=== PATIENT | female | born 1965 | race Caucasian/White ===

== ENCOUNTER → 2016-12-13 | Outpatient (CLI) | payer OTHER | LOC: BMCIMAGING 14:43 | PROVIDERS: ATTEND Internal Medicine | DX: R09.02 Hypoxemia (principal); I10 Essential (primary) hypertension; J45.909 Unspecified asthma, uncomplicated; R91.8 Other nonspecific abnormal finding of lung field ==

== ENCOUNTER → 2016-12-19 | Outpatient (CLI) | payer OTHER | LOC: CIMAGING 08:14 | PROVIDERS: ATTEND Internal Medicine | DX: R18.8 Other ascites (principal); R16.0 Hepatomegaly, not elsewhere classified; K76.0 Fatty (change of) liver, not elsewhere classified | CPT/HCPCS: 76700-PO ==

== ENCOUNTER → 2016-12-21 | Outpatient (CLI) | payer OTHER | LOC: FIMAGING 08:57 | PROVIDERS: ATTEND Internal Medicine Gastroenterology | DX: R14.0 Abdominal distension (gaseous) (principal); M24.9 Joint derangement, unspecified ==

== ENCOUNTER 2016-12-24 15:16 | Inpatient (IN) | payer OTHER ==
--- NOTE | 2016-12-24 16:02 | EDPHY ---
HPI/HX/ROS/PE/MDM Narrative: CHIEF COMPLAINT: Swollen abdomen and legs. HISTORY OF PRESENT ILLNESS: This patient is a 51 year old female arriving with her complaining of swollen abdomen and feet worsening over the last 2-3 months. She sought evaluation several weeks ago and was diagnosed with "viral hepatitis" one week ago. She states she has started taking Spironolactone, but that her abdomen has continued to swell. She states she had been a heavy drinker in the past, but has since decreased her alcohol use. She states she has pain on the left side of her abdomen which is exacerbated by moving or by lying down on that side. She endorses intermittent chest pain and shortness of breath, and does have a history of asthma. She states she has noted blood in her stool, but that it may be related to a "cyst". She reports she takes Ibuprofen for pain, and has been avoiding Tylenol, alcohol, and salty foods as directed. No fever, chills, palpitations, vomiting, diarrhea, urinary complaints, headache, lightheadedness. REVIEW OF SYSTEMS: Aside from elements discussed in the HPI, a comprehensive 10-point review of systems was reviewed and is negative. PAST MEDICAL HISTORY: Asthma (Advair, Albuterol, nebulizer). SOCIAL HISTORY: at bedside. PCP Dr. Antony. Seen by Dr Rob Gallegos for GI. VITAL SIGNS: Reviewed by me GENERAL: Jaundiced. Reports abdominal pain, no respiratory distress. HEENT: Atraumatic. Eyes: Icterus. No injection. Mouth: moist mucous membranes. No erythema or lesions. Neck: supple with no adenopathy. LUNGS: Clear to auscultation bilaterally, no wheezes, rhonchi or rales. CARDIAC: Regular rate and rhythm, no rubs, murmurs or gallops. ABDOMEN: Distended, positive fluid wave. Mild diffuse tenderness. BACK: No CVA tenderness. EXTREMITIES: 2+ pitting edema to knees. No trauma. Range of motion is normal throughout. NEURO: Alert and oriented, grossly nonfocal. SKIN: Warm and dry, jaundiced, no rash. Scattered spider hemangiomas. PSYCHIATRIC: Normal mentation, no agitation. Portions of this note were transcribed by a center medical specialist. I personally performed a history, physical exam, medical decision making, and confirmed accuracy of information the transcribed note. ED Course: This patient is a 51 year old female with recent hepatitis diagnosis presenting with distended abdomen and 2+ pitting edema. Recent lab results are negative for Hepatitis A, B, and C. Plan for labs including CBC, liver, lipase, PTPTT, and UA and abdominal CT. 17:[address] Rider, radiologist. CT reveals small amount of ascites, edema of abdominal wall, fatty infiltrate to liver. Plan to admit for liver cirrhosis, hyperbilirubinemia. 17:52 Dr. Tillman, hospitalist, accepts admission. Aware that patient had been seen by Dr Gallegos. Arrangements made for ultrasound guided diagnostic paracentesis. MDM: Diff dx considered included but not limited to ascites, spontaneous bacterial peritonitis, liver failure, electrolyte abnormalities, anemia, coagulopathy. - Data Points Imaging Results: Imaging Impressions Abdomen/Pelvis CT 12/24/16 16:14 Impression: 1. Nonobstructive bilateral nephrolithiasis. 2. Sigmoid diverticulosis without diverticulitis or bowel obstruction. 3. Small amount of ascites in all four quadrants. 4. Hepatomegaly and hepatic steatosis without focal solid hepatic masses. 5. No splenomegaly. 6. No appendicitis, constipation, or bowel obstruction. Findings and recommendations discussed with emergency department physician, Filomena Orantes MD at 1732 hours on December 24, 2016. Final report concurs with initial preliminary interpretation. Chest X-Ray 12/24/16 16:14 Impression: 1. Lingular scarring or atelectasis. 2. No acute pneumonia, pleural effusion, pneumothorax, or pulmonary edema. Laboratory Results: Laboratory Results 12/24/16 15:37 12/24/16 15:37 12/24/16 12/24/16 12/24/16 15:37 15:37 15:37 WBC 8.89 10^3/uL 10^3/uL (3.80-9.50) RBC 3.76 10^6/uL L 10^6/uL (4.18-5.33) Hgb 12.8 g/dL g/dL (12.6-16.3) Hct 37.6 % L % (38.0-47.0) MCV 100.0 fL H fL (81.5-99.8) MCH 34.0 pg pg (27.9-34.1) MCHC 34.0 g/dL g/dL (32.4-36.7) RDW 22.8 % H % (11.5-15.2) Plt Count 249 10^3/uL 10^3/uL (150-400) MPV 10.6 fL fL (8.7-11.7) Neut % (Auto) 75.9 % H % (39.3-74.2) Lymph % (Auto) 10.5 % L % (15.0-45.0) Snyder % (Auto) 10.5 % % (4.5-13.0) Eos % (Auto) 1.2 % % (0.6-7.6) Baso % (Auto) 1.7 % % (0.3-1.7) Nucleat RBC Rel Count 0.0 % % (0.0-0.2) Absolute Neuts (auto) 6.75 10^3/uL H 10^3/uL (1.70-6.50) Absolute Lymphs (auto) 0.93 10^3/uL L 10^3/uL (1.00-3.00) Absolute Monos (auto) 0.93 10^3/uL H 10^3/uL (0.30-0.80) Absolute Eos (auto) 0.11 10^3/uL 10^3/uL (0.03-0.40) Absolute Basos (auto) 0.15 10^3/uL H 10^3/uL (0.02-0.10) Absolute Nucleated RBC 0.00 10^3/uL 10^3/uL (0-0.01) Immature Gran % 0.2 % % (0.0-1.1) Immature Gran # 0.02 10^3/uL 10^3/uL (0.00-0.10) Platelet Estimate ADEQUATE (ADEQ) Polychromasia 1+ H Target Cells 1+ H Oval Macrocytes 1+ H PT 17.5 SEC H SEC (12.0-15.0) INR 1.44 H (0.83-1.16) APTT 34.5 SEC SEC (23.0-38.0) Sodium 138 mEq/L mEq/L (134-144) Potassium 3.9 mEq/L mEq/L (3.5-5.2) Chloride 100 mEq/L mEq/L (97-110) Carbon Dioxide 26 mEq/l mEq/l (22-31) Anion Gap 12 mEq/L mEq/L (8-16) BUN 3 mg/dL L mg/dL (7-23) Creatinine 0.7 mg/dL mg/dL (0.6-1.0) Estimated GFR > 60 Glucose 102 mg/dL H mg/dL (70-100) Calcium 8.9 mg/dL mg/dL (8.5-10.4) Total Bilirubin 13.0 mg/dL H mg/dL (0.1-1.4) Conjugated Bilirubin 10.2 mg/dL H mg/dL (0.0-0.5) Unconjugated Bilirubin 2.8 mg/dL H mg/dL (0.0-1.1) AST 167 IU/L H IU/L (14-46) ALT 47 IU/L IU/L (9-52) Alkaline Phosphatase 202 IU/L H IU/L (38-126) Total Protein 7.4 g/dL g/dL (6.3-8.2) Albumin 3.1 g/dL L g/dL (3.5-5.0) Lipase 120.0 IU/L IU/L (23-300) Medications Given: Discontinued Medications Furosemide (Lasix) 40 mg PO ONCE ONE Stop: 12/24/16 19:11 Last Admin: 12/24/16 19:37 Dose: 40 mg General Time Seen by Provider: 12/24/16 15:43 Initial Vital Signs: Initial Vital Signs Temperature (C) 36.6 C 12/24/16 15:23 Heart Rate 105 H 12/24/16 15:23 Respiratory Rate 20 12/24/16 15:23 Blood Pressure 132/85 H 12/24/16 15:23 O2 Sat (%) 95 12/24/16 15:23 O2 Delivery Mode Room Air Allergies/Adverse Reactions: No Known Allergies Allergy (Unverified 12/24/16 15:23) Home Medications: Medication Instructions Recorded Albuterol [Proventil Neb] 3 ml IH Q6H PRN 12/24/16 Albuterol [Ventolin Hfa Inhaler] 1 - 2 puffs IH Q4-6PRN PRN 12/24/16 Fluticasone/Salmeter 250/50Mcg 1 puffs IH BID 12/24/16 [Advair 250/50 (*)] Ibuprofen [Motrin (*)] 800 mg PO BID PRN 12/24/16 Spironolactone [Aldactone] 50 mg PO BID 12/24/16 Temazepam [Restoril] 30 mg PO HS PRN 12/24/16 Departure - Departure Disposition: [facility] Inpatient Acute Clinical Impression: Hyperbilirubinemia Liver cirrhosis Qualifiers: Hepatic cirrhosis type: unspecified hepatic cirrhosis Ascites presence: with ascites Qualified Code(s): K74.60 - Unspecified cirrhosis of liver Condition: Fair Report Scribed for: Filomena Orantes Report Scribed by: Caron Lerma Date of Report: 12/24/16 Time of Report: 16:00
[2016-12-24 16:28] LABS: ALANINE AMINOTRANSFERASE 47 IU/L (9-52); ALBUMIN 3.1 g/dL (3.5-5.0); ALKALINE PHOSPHATASE 202 IU/L (38-126); ANION GAP 12 mEq/L (8-16); ASPARTATE AMINOTRANSFERASE 167 IU/L (14-46); BILIRUBIN-CONJUGATED 10.2 mg/dL (0.0-0.5); BILIRUBIN-UNCONJUGATED 2.8 mg/dL (0.0-1.1); CALCIUM 8.9 mg/dL (8.5-10.4); CARBON DIOXIDE 26 mEq/l (22-31); CHLORIDE 100 mEq/L (97-110); CREATININE 0.7 mg/dL (0.6-1.0); GLOMERULAR FILTRATION RATE > 60; GLUCOSE 102 mg/dL (70-100); POTASSIUM 3.9 mEq/L (3.5-5.2); SODIUM 138 mEq/L (134-144); TOTAL PROTEIN 7.4 g/dL (6.3-8.2)
[2016-12-24 16:29] LABS: APTT 34.5 SEC (23.0-38.0); INR 1.44 (0.83-1.16); PROTIME(PATIENT) 17.5 SEC (12.0-15.0)
[2016-12-24 16:31] LABS: % IMMATURE GRANULYOCYTES 0.2 % (0.0-1.1); ABSOLUTE IMMATURE GRANULOCYTES 0.02 10^3/uL (0.00-0.10); ADD DIFF? NO; ADD MORPH? YES; ADD SCAN? NO; ATYPICAL LYMPHOCYTE FLAG 0 (0-99); FRAGMENT RBC FLAG 20 (0-99); HEMATOCRIT 37.6 % (38.0-47.0); HEMOGLOBIN 12.8 g/dL (12.6-16.3); LEFT SHIFT FLG 0 (0-99); LIPEMIA HEMOLYSIS FLAG 90 (0-99); MEAN PLATELET VOLUME 10.6 fL (8.7-11.7); PLATELET CLUMPS FLAG 20 (0-99); PLATELET COUNT 249 10^3/uL (150-400); RED BLOOD CELL COUNT 3.76 10^6/uL (4.18-5.33)
[2016-12-24 16:34] LABS: RED CELL DISTRIBUTION WIDTH 22.8 % (11.5-15.2)
[2016-12-24] MEDS ORDERED: IOPAMIDOL (ISOVUE-300) 100 ML BTL ONE (16:55)
[2016-12-24 17:33] LABS: PLATELET ESTIMATE ADEQUATE (ADEQ)
[2016-12-24 17:40] LABS: MACROCYTES 1+; POLYCHROMASIA 1+; TARGET CELLS 1+
--- NOTE | 2016-12-24 19:00 | HOSPPROG ---
Hospitalist Progress Note Assessment/Plan: HISTORY AND PHYSICAL CC:Abdominal pain with increasing abdominal girth and leg swelling HISTORY: This patient has a months long history of worsening bilateral leg edema and abdominal distention. More recently she has started having diffuse pain in the abdomen as well. She had been seen by some physicians in [place] who diagnosed electrolyte abnormalities but did not specifically find a cause for the swelling. More recently she was seen by Dr. Yolanda Antony here in [place] who did blood testing identified some abnormal liver enzymes and elevated bilirubin. The patient was given some spironolactone 50 mg twice daily to take but has had continued worsening of her abdominal and leg swelling and worsening of abdominal pain since starting that medicine 2 weeks ago. she presents here now for further assessment and care of these symptoms. She has no fever, has had somewhat of a decreased appetite but is eating. There is no constipation or other change in bowel function. She has no joint pains skin rashes or oral sores bleeding or bruising. She does notice some small red splotches on the skin of her upper chest. This morning she noticed that she appeared quite jaundice when she looked in the mirror. She has no prior history of any hepatitis exposures, IV drug use, family history of liver disease or immune illness. She does have a long history of alcoholism but had cut back not long ago and has stopped drinking altogether as of 2 weeks ago. ROS: A comprehensive 10 system review revealed no other significant findings; her asthma is at its baseline PAST MEDICAL HISTORY: Chronic persistent asthma, currently using Advair and albuterol FAMILY MEDICAL HISTORY: diabetes, lung cancer SOCIAL HISTORY: she is previously and currently . 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 I have reviewed the list and ordered appropriate medicines. 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, no focal weakness IV site: looks normal LABORATORY DATA: bilirubin is up to 13 compared to 5 on December 04 AST and ALT are both elevated with AST notably higher, though the numbers are better now than they were on December 04 On review of her outpatient records hepatitis serology for a B and C are all negative She has an elevated alpha 1 antitrypsin level so this is not due to alpha-1 antitrypsin deficiency Some other serologies are pending RADIOLOGY STUDIES: CT scan of the abdomen, I have reviewed the images and there is a moderate amount of uncomplicated appearing ascites mostly in the lower abdomen ASSESSMENT: 1- Worsening some ascites with increasing abdominal pain despite recent onset of Aldactone 50 mg twice daily 2- acutely worsening hepatic function in the setting of alcoholic hepatitis, with bilirubin now up to 13 3- abdominal pain raising suspicion for SBP 4- Coagulopathy, macrocytic anemia, and in the outpatient setting low platelets all due to alcoholic liver disease 5- Advanced alcoholic cirrhosis 6- History of alcoholism now sober for the past 2 weeks 7- Stable chronic persistent asthma PLANS: -admission hospital -diagnostic paracentesis to rule out SBP -Low-salt and fluid-restricted diet -Continue her Aldactone and Lasix -Follow her hepatic function tests closely here -Consult with Dr. Yaniv Gallegos -There is no current indication for steroid therapy -DVT prophylaxis I have reviewed the patient's case in detail with Dr. Filomena Orantes I have reviewed the patient's past medical records as part of this assessment, including outpatient records regarding her liver evaluation with Dr. Antony Objective: Vital Signs Temp Pulse Resp BP Pulse Ox 36.6 C 95 16 123/82 H 98 12/24/16 15:23 12/24/16 17:29 12/24/16 17:29 12/24/16 17:29 12/24/16 17:29 PT 17.5 SEC (12.0-15.0) H 12/24/16 15:37 INR 1.44 (0.83-1.16) H 12/24/16 15:37 ICD10 Worksheet Patient Problems: Problems Problem Status Onset Hyperbilirubinemia Acute Liver cirrhosis Acute
[2016-12-24] MEDS ORDERED: ZOLPIDEM TARTRATE 5 MG TAB PO PRN (19:07)
[2016-12-24] MEDS ORDERED: ACETAMINOPHEN 325 MG TAB PO PRN (19:07)
[2016-12-24] MEDS ORDERED: ONDANSETRON 4 MG/2 ML VIAL IVP PRN (19:07)
[2016-12-24] MEDS ORDERED: NON-FORMULARY NEW DRUG (Temazepam [Restoril] 30 MG) PO PRN (19:09)
[2016-12-24] MEDS ORDERED: ALBUTEROL 3 ML DEYVIAL IH PRN (19:09)
[2016-12-24] MEDS ORDERED: NON-FORMULARY NEW DRUG (Albuterol 2 PUFFS) IH PRN (19:09)
[2016-12-24] MEDS ORDERED: FUROSEMIDE 40 MG TAB PO ONE (19:10)
[2016-12-24] MEDS ORDERED: ALBUTEROL 200 PUFFS/18 GM MDI IH PRN (19:19)
[2016-12-24] MEDS ORDERED: TEMAZEPAM 15 MG CAP PO PRN (19:19)
[2016-12-24 21:05] LABS: COLOR YELLOW; LEUKOCYTE ESTERASE,URINE NEGATIVE (NEGATIVE); NITRITE,URINE NEGATIVE (NEGATIVE)
[2016-12-24] MEDS: FLUTICASONE/SALMETER 250/50MCG DISKUS IH SCH (21:08)
[2016-12-24] MEDS: SPIRONOLACTONE 50 MG TAB PO SCH (21:22)
[2016-12-24] MEDS: oxyCODONE IR 5 MG TAB PO PRN (23:07)
[2016-12-25 04:38] LABS: ALANINE AMINOTRANSFERASE 44 IU/L (9-52); ALBUMIN 2.6 g/dL (3.5-5.0); ALKALINE PHOSPHATASE 162 IU/L (38-126); ANION GAP 11 mEq/L (8-16); ASPARTATE AMINOTRANSFERASE 143 IU/L (14-46); BILIRUBIN,TOTAL 11.3 mg/dL (0.1-1.4); BILIRUBIN-CONJUGATED 8.9 mg/dL (0.0-0.5); BILIRUBIN-UNCONJUGATED 2.4 mg/dL (0.0-1.1); CALCIUM 8.7 mg/dL (8.5-10.4); CARBON DIOXIDE 27 mEq/l (22-31); CHLORIDE 97 mEq/L (97-110); CREATININE 0.7 mg/dL (0.6-1.0); GLOMERULAR FILTRATION RATE > 60; GLUCOSE 84 mg/dL (70-100); POTASSIUM 3.8 mEq/L (3.5-5.2); SODIUM 135 mEq/L (134-144); TOTAL PROTEIN 6.5 g/dL (6.3-8.2)
[2016-12-25] MEDS: SPIRONOLACTONE 50 MG TAB PO SCH ×2 (07:58→20:19)
[2016-12-25] MEDS ORDERED: FUROSEMIDE 40 MG TAB PO SCH (09:00)
[2016-12-25] MEDS ORDERED: ENOXAPARIN 40 MG/0.4 ML SYR SC SCH (09:00)
[2016-12-25] MEDS: FLUTICASONE/SALMETER 250/50MCG DISKUS IH SCH ×2 (09:04→23:21)
[2016-12-25] MEDS ORDERED: ALBUTEROL 200 PUFFS/18 GM MDI IH PRN (09:57)
--- NOTE | 2016-12-25 11:27 | HOSPPROG ---
Hospitalist Progress Note Assessment/Plan: * acute hepatitis/rule out chronic liver disease or cirrhosis * Patient states she only drank heavily for 2 years about 8 years ago but since then has only been drinking 1-2 glasses of wine daily. * Says that she went downhill after a upper respiratory tract infection a few weeks ago * Not convinced this is alcoholic hepatitis - her discriminant function is 38 and so if it were we should be giving steroids * Will discuss the case with Gastroenterology * Continue IV diuretics * Will get paracentesis tomorrow * history of asthma Subjective: Still feels pretty distended. Also has significant edema Objective: Vital Signs Temp Pulse Resp BP Pulse Ox 36.6 C 95 18 119/73 95 12/25/16 11:06 12/25/16 11:06 12/25/16 11:06 12/25/16 11:06 12/25/16 11:06 Laboratory Results 12/25/16 03:37 12/24/16 12/25/16 12/26/16 05:59 05:59 05:59 Intake Total 700 Output Total 300 Balance 400 PT 17.5 SEC (12.0-15.0) H 12/24/16 15:37 INR 1.44 (0.83-1.16) H 12/24/16 15:[address] scan personally viewed interpreted - Physical Exam Constitutional: no apparent distress, appears nourished, not in pain Eyes: icteric sclera (Mild) Cardiovascular: regular rate and rhythym, no murmur, rub, or gallop, edema (2+) Respiratory: no respiratory distress, no rales or rhonchi, clear to auscultation Gastrointestinal: normoactive bowel sounds, soft, non-tender abdomen, ascites, distension Skin: warm Neurologic: AAOx3 Psychiatric: interacting appropriately, not anxious, not encephalopathic, thought process linear ICD10 Worksheet Patient Problems: Problems Problem Status Onset Hyperbilirubinemia Acute Liver cirrhosis Acute
[2016-12-25] MEDS: FUROSEMIDE 40 MG/4 ML VIAL IVP SCH (14:07)
--- NOTE | 2016-12-25 17:04 | SOAPPROG ---
SOAP Progress Note Assessment/Plan: Assessment:Subacute liver failure, workup to date negative for anything except alcohol as underlying cause. Pt admitted for worsening jaundice and edema. Abdominal distension is symptomatic but appears to be due to hepatomegaly rather than ascites, which is minimal on imaging. GOod response to diuretics today. Plan:Supportive care; would hold steroids as AST and ALT are normalizing despite rise in bilirubin. Attempt paracentesis tomorrow, if only to r/o SBP. 12/25/16 17:01 Objective: Vital Signs Temp Pulse Resp BP Pulse Ox 36.6 C 97 18 116/74 94 12/25/16 15:55 12/25/16 15:55 12/25/16 15:55 12/25/16 15:55 12/25/16 15:55 Laboratory Results 12/25/16 03:37 12/24/16 12/25/16 12/26/16 05:59 05:59 05:59 Intake Total 700 Output Total 300 Balance 400 PT 17.5 SEC (12.0-15.0) H 12/24/16 15:37 INR 1.44 (0.83-1.16) H 12/24/16 15:37 ICD10 Worksheet Patient Problems: Problems Problem Status Onset Hyperbilirubinemia Acute Liver cirrhosis Acute
[2016-12-25] MEDS: oxyCODONE IR 5 MG TAB PO PRN ×2 (18:42→23:20)
--- NOTE | 2016-12-25 21:35 | GCON ---
[f rep st] CONSULTATION HEPATOLOGY CONSULTATION IMPRESSION: 1. Subacute liver failure manifested by cholestasis, elevated liver enzymes, and hypoalbuminemia, w ith mild coagulopathy. 2. Significant abdominal distention. By imaging, this is mostly due to hepatomegaly. There is sma ll amount of ascites noted, which could not be tapped by the radiologist last week. 3. Pedal edema, probably due to hypoalbuminemia. 4. Underlying alcohol abuse, although patient denies any alcohol in the past several weeks. 5. Worsening hyperbilirubinemia. DISCUSSION: The patient was initially seen by me last week, and serology performed that showed no e vidence of any other underlying liver disease. Her presenting transaminases were consistent with al coholic hepatitis. Her bilirubin has climbed dramatically, while her AST and ALT have decreased. RECOMMENDATIONS: 1. Agree with aggressive diuresis. 2. Follow lab work and if bilirubinemia worsens, would consider steroids for possible alcoholic hep atitis alone as cause of that abnormality and the hepatomegaly. 3. Sodium restriction, 2 g per day. HISTORY OF PRESENT ILLNESS: The patient is a 51-year-old female, who I saw for the first time last week for abdominal distention, pedal edema, and jaundice. She was noted at that time to have stigma ta of chronic liver disease, with telangiectasias. She had imaging done that did show hepatomegaly, but only minimal amount of ascites, and Radiology did not feel it was safe to try to tap this. She was started on Aldactone 50 mg twice daily 4 days ago, but her pedal edema worsened, she felt her a bdominal distention worsened, and she noticed her jaundice worsened, so she presented to the emergen cy room, and was admitted. At that time, her total bilirubin was 13.0. This compared to 5.0 last w redding. AST was 167, down from 314, albumin 3.1, about the same as last week. The patient was a heavy drinker up until about 8 years ago, then 1-2 glasses of wine daily, which sh e stopped 2 weeks ago. She did not go into withdrawal. I performed serology to rule out other underlying liver diseases last week, and all tests were negat lindy. Doppler ultrasound does show some retrograde flow in the portal vein consistent with portal hyperten keith. PAST MEDICAL HISTORY: Significant for asthma, and recent episode of pneumonia. MEDICATIONS: Included Advair, a prednisone taper, ProAir, and Aldactone. ALLERGIES: None are known. PHYSICAL EXAM: GENERAL APPEARANCE: Reveals a jaundiced female in no acute distress. She is cohere nt and answers questions appropriately. HEENT: Her sclerae are anicteric. ABDOMEN: Soft and dist ended, but nontender. EXTREMITIES: Show 2+ pitting edema to the knees. LABORATORY DATA: Reveals a white count of 8.9, hemoglobin 12.8, platelet count 249,000. INR is 1.4 4, unchanged from last week. Total bilirubin this morning 11.3, which 8.9 is conjugated, AST has dr opped to 143, ALT has dropped to 44, albumin just dropped to 2.6. IMAGING: CT scan performed on admission shows significant hepatomegaly, renal stones, diverticulosi s, small amount of ascites in all 4 quadrants. No masses in the liver. No splenomegaly. No consti pation. /[id number]/MODL
[2016-12-26] MEDS: oxyCODONE IR 5 MG TAB PO PRN ×4 (04:32→23:01)
[2016-12-26 05:49] LABS: ALANINE AMINOTRANSFERASE 42 IU/L (9-52); ALBUMIN 2.5 g/dL (3.5-5.0); ALKALINE PHOSPHATASE 154 IU/L (38-126); ANION GAP 9 mEq/L (8-16); ASPARTATE AMINOTRANSFERASE 126 IU/L (14-46); BILIRUBIN,TOTAL 10.7 mg/dL (0.1-1.4); BILIRUBIN-CONJUGATED 8.2 mg/dL (0.0-0.5); BILIRUBIN-UNCONJUGATED 2.5 mg/dL (0.0-1.1); CALCIUM 8.5 mg/dL (8.5-10.4); CARBON DIOXIDE 30 mEq/l (22-31); CHLORIDE 96 mEq/L (97-110); CREATININE 0.8 mg/dL (0.6-1.0); GLOMERULAR FILTRATION RATE > 60; GLUCOSE 78 mg/dL (70-100); MAGNESIUM 1.5 mg/dL (1.6-2.3); POTASSIUM 3.8 mEq/L (3.5-5.2); SODIUM 135 mEq/L (134-144); TOTAL PROTEIN 6.2 g/dL (6.3-8.2)
[2016-12-26] MEDS: FUROSEMIDE 40 MG/4 ML VIAL IVP SCH ×2 (08:08→14:07)
[2016-12-26] MEDS: SPIRONOLACTONE 50 MG TAB PO SCH ×2 (08:09→20:16)
[2016-12-26] MEDS: FLUTICASONE/SALMETER 250/50MCG DISKUS IH SCH ×2 (08:13→21:14)
--- NOTE | 2016-12-26 10:49 | HOSPPROG ---
Hospitalist Progress Note Assessment/Plan: * acute hepatitis/rule out chronic liver disease or cirrhosis * Patient states she only drank heavily for 2 years about 8 years ago but since then has only been drinking 1-2 glasses of wine daily. * Says that she went downhill after a upper respiratory tract infection a few weeks ago * Not convinced this is alcoholic hepatitis - her discriminant function is 38 and so if it were we should be giving steroids - but since I am not convinced will hold off * Continue IV diuretics * Paracentesis today * Probably home tomorrow * history of asthma Subjective: Legs feel better. Less abdominal distention Objective: Vital Signs Temp Pulse Resp BP Pulse Ox 37.0 C 90 18 98/71 L 91 L 12/26/16 07:24 12/26/16 07:24 12/26/16 07:24 12/26/16 07:24 12/26/16 07:24 Laboratory Results 12/26/16 04:30 12/25/16 12/26/16 12/27/16 05:59 05:59 05:59 Intake Total 700 1660 Output Total 187 153 5953 Balance 400 1210 -1000 PT 17.5 SEC (12.0-15.0) H 12/24/16 15:37 INR 1.44 (0.83-1.16) H 12/24/16 15:37 Discussed with Gastroenterology - Physical Exam Constitutional: no apparent distress, appears nourished, not in pain Eyes: icteric sclera Ears, Nose, Mouth, Throat: moist mucous membranes, hearing normal, ears appear normal Cardiovascular: regular rate and rhythym, edema (1+ edema improving) Respiratory: no respiratory distress Gastrointestinal: normoactive bowel sounds, soft, non-tender abdomen, ascites ( Mild) Neurologic: AAOx3 Psychiatric: interacting appropriately, not anxious, not encephalopathic, thought process linear ICD10 Worksheet Patient Problems: Problems Problem Status Onset Hyperbilirubinemia Acute Liver cirrhosis Acute
[2016-12-26] MEDS ORDERED: LIDOCAINE 1% 300 MG/30 ML SDV ONE (12:22)
--- NOTE | 2016-12-26 17:51 | SOAPPROG ---
SOAP Progress Note Assessment/Plan: Assessment:Subacute liver failure, workup to date negative for anything except alcohol as underlying cause. Pt admitted for worsening jaundice and edema. Abdominal distension is symptomatic but appears to be due to hepatomegaly rather than ascites, which is minimal on imaging. GOod response to diuretics today. Plan:Supportive care; would hold steroids as AST and ALT are normalizing despite rise in bilirubin. Attempt paracentesis tomorrow, if only to r/o SBP. 12/25/16 17:01 12/26/16 17:49 Doing better, 3.5 kg wt decrease overnight. Still not enough ascites to tap on US. Legs less edematous. Agree with sending patient home tomorrow on Lasix 20 mg bid and Aldactone 50 mg bid. Will need follow up in my office next 1-2 weeks. Objective: Vital Signs Temp Pulse Resp BP Pulse Ox 36.8 C 93 18 111/72 91 L 12/26/16 15:37 12/26/16 15:37 12/26/16 15:37 12/26/16 15:37 12/26/16 15:37 Laboratory Results 12/26/16 04:30 12/25/16 12/26/16 12/27/16 05:59 05:59 05:59 Intake Total 700 1660 Output Total 967 167 2707 Balance 400 1210 -1900 PT 17.5 SEC (12.0-15.0) H 12/24/16 15:37 INR 1.44 (0.83-1.16) H 12/24/16 15:37 ICD10 Worksheet Patient Problems: Problems Problem Status Onset Hyperbilirubinemia Acute Liver cirrhosis Acute
[2016-12-27 05:31] LABS: ALANINE AMINOTRANSFERASE 45 IU/L (9-52); ALBUMIN 2.8 g/dL (3.5-5.0); ALKALINE PHOSPHATASE 165 IU/L (38-126); ANION GAP 10 mEq/L (8-16); ASPARTATE AMINOTRANSFERASE 155 IU/L (14-46); BILIRUBIN-CONJUGATED 9.4 mg/dL (0.0-0.5); BILIRUBIN-UNCONJUGATED 2.6 mg/dL (0.0-1.1); CALCIUM 8.4 mg/dL (8.5-10.4); CARBON DIOXIDE 31 mEq/l (22-31); CHLORIDE 91 mEq/L (97-110); CREATININE 0.8 mg/dL (0.6-1.0); GLOMERULAR FILTRATION RATE > 60; GLUCOSE 79 mg/dL (70-100); POTASSIUM 3.3 mEq/L (3.5-5.2); SODIUM 132 mEq/L (134-144)
[2016-12-27] MEDS: FLUTICASONE/SALMETER 250/50MCG DISKUS IH SCH (05:56)
[2016-12-27] MEDS: oxyCODONE IR 5 MG TAB PO PRN ×2 (05:59→10:32)
[2016-12-27 08:23] VITALS: BP 125/71; PULSE 89; RESP 16; TEMP 98.2; O2SAT 94
[2016-12-27] MEDS: FUROSEMIDE 40 MG/4 ML VIAL IVP SCH (08:44)
[2016-12-27] MEDS: SPIRONOLACTONE 50 MG TAB PO SCH (08:44)
--- NOTE | 2016-12-27 12:06 | PDDCSUM ---
Discharge Summary Discharge Summary: Hospital Course 51 yo female admitted for subacute liver failure. No steroids were needed. Had evidence of volume overload and Lasix 20mg PO BID has been added to her home dose of Spironolactone 50mg PO BID. US did not show significant ascites. No paracentesis was performed.Would avoid NSAIDS. Discharge Diagnosis: * acute hepatitis/rule out chronic liver disease or cirrhosis possibly due to a hx of ETOH use. * history of asthma * Leg discomfort: Oxycodone 5mg #20 given. No refills. EXAM VSS on RA NAD AAOX3 MMM RRR CTAB DISTENDED, NO R/G. NON TENDER TRACE - 1+ LE EDEMA DC MEDS: SEE MED REC. LASIX STARTED. NSAID STOPPED F/U WITH PCP [address] MCNULTY WITH GI 2 WEEKS. TOTAL TIME SPENT ON DISCHARGE IS 35 MINUTES
== END 2016-12-27 12:57 | disposition home or self-care (01) | DRG 433 ==
LOC: F2W 19:56
PROVIDERS: ADMIT Internal Medicine; ATTEND Internal Medicine
DX: K70.40 Alcoholic hepatic failure without coma (principal); D68.9 Coagulation defect, unspecified; F10.20 Alcohol dependence, uncomplicated
CPT/HCPCS: J1650; J1940; Q9967